=== PATIENT | female | born 1960 ===

== ENCOUNTER 2019-08-29 15:55 | Emergency (ER) | payer BC, SELFPAY ==
[2019-08-29 16:06] VITALS: BP 180/81; PULSE 72; RESP 18; TEMP 36.9; O2SAT 96; BMI 29.6
--- NOTE | 2019-08-29 16:10 | DI.RAD.S_ITS ---
PROCEDURE: XR LUMBAR SPINE 2-3V INDICATIONS: pain TECHNIQUE: 3 views of the lumbar spine were acquired. COMPARISON: None. FINDINGS: Bones: No fracture or focal osseous destruction. Severe narrowing of the L4-L5 disc space. Moderate L5-S1 disc space narrowing. Multilevel degenerative endplate sclerosis and spurring. Diffuse facet arthropathy. Sacroiliac joints grossly unremarkable. Soft tissues: Overlying bowel gas pattern is normal. No suspicious soft tissue calcifications. IMPRESSION: Multilevel lumbar spondylosis and facet disease, most pronounced at L4-L5 and L5-S1. Dictated by: Nazario Bazzi M.D. on 08/29/2019 at 16:40 Approved by: Nazario Bazzi M.D. on 08/29/2019 at 16:42
[2019-08-29] MEDS: CYCLOBENZAPRINE 10 MG TABLET PO (16:21)
[2019-08-29] MEDS: LIDOCAINE PATCH 1 EACH ADH..PATCH TOP (16:21)
--- NOTE | 2019-08-29 16:21 | ED_ITS ---
HPI - Back Pain/Injury <KAYLIN Kennedy - Last Filed: 08/29/19 18:06> General Chief Complaint: Back Pain/Injury Stated Complaint: lower back pain x2 wks Time Seen by Provider: 08/29/19 16:03 Source: patient and family Mode of arrival: Ambulatory Limitations: no limitations History of Present Illness HPI Narrative: The patient is a 58-year-old female current everyday smoker with history of hypertension who presents with a chief complaint of lower back pain. 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 She states it got worse yesterday while getting out of a car. She initially states she has only taken Tylenol at but then states that she took Flexeril this morning. She denies any incontinence of bowel incontinence of bladder saddle anesthesia. She states the pain is not radiating anywhere. She denies any numbness or tingling she has not followed up with primary care provider since the injury. Related Data Previous Rx's Medication Instructions Recorded cyclobenzaprine 10 mg PO TID PRN #14 tab 08/29/19 hydrocodone-acetaminophen [[place]hal[place]] 1 tab PO Q4-6H PRN #7 tab 08/29/19 lidocaine 1 patch TOP DAILY #15 each 08/29/19 Review of Systems <KAYLIN Kennedy - Last Filed: 08/29/19 18:06> Review of Systems Narrative: GENERAL: Denies chills, fatigue, malaise, fever, sweats. HEENT: Denies sinus pain, ear pain, sore throat, difficulty swallowing, dizzines s. RESPIRATORY: Denies dyspnea, cough, wheezing, hemoptysis, sputum. CARDIOVASCULAR: Denies chest pain, palpitations, orthopnea, edema, GASTROINTESTINAL: Denies nausea, vomiting, abdominal pain, diarrhea, constipation, melena. : Denies dysuria, frequency, incontinence, hematuria, urinary retention. MUSCULOSKELETAL: See HPI SKIN: Denies rash, skin lesions, or other NEUROLOGIC: Denies weakness, headache, numbness, change in speech, confusion, seizures, incoordination. PSYCHIATRIC: No concerning psychosocial issues. 12 point review of systems is negative except for those stated above Patient History <KAYLIN Kennedy - Last Filed: 08/29/19 18:06> Social History Smoking Status: Current every day smoker Smoking Status: Current every day smoker alcohol intake frequency: holidays/special occasions only Substance Use Type: marijuana Exam <KAYLIN Kennedy - Last Filed: 08/29/19 18:06> Narrative Exam Narrative: GENERAL: This is a well-nourished, well-developed patient, in mild distress. HEAD: Atraumatic. Normocephalic. No temporal or scalp tenderness. EYES: Pupils equal round and reactive. Extraocular motions intact. No scleral icterus. No injection or drainage. ENT: Nose without bleeding, purulent drainage or septal hematoma. Throat without erythema, tonsillar hypertrophy or exudate. Uvula midline. Airway patent. NECK: Trachea midline. No JVD or lymphadenopathy. Supple, nontender, no meningeal signs. CARDIOVASCULAR: Regular rate and rhythm RESPIRATORY: Coarse to auscultation. Breath sounds equal bilaterally. No wheezes, rales, or rhonchi. No cough. No increased respiratory effort. No accessory muscle use. GASTROINTESTINAL: Abdomen soft, non-tender, nondistended. No hepato- splenomegaly, or palpable masses. No guarding. EXTREMITIES: No clubbing, cyanosis, or edema. No joint tenderness, effusion, or edema noted. BACK: Cervical and thoracic spine are without deformity or crepitance. Tenderness to lumbar spine palpation and bilateral paraspinal muscle palpation. NEURO: AOx3. Strength is equal upper and lower extremities bilaterally. Bilateral patellar reflexes intact. Stable gait. SKIN: No rash or erythema on visible skin Initial Vital Signs Initial Vital Signs: Vital Signs Temperature 98.5 F 08/29/19 16:06 Pulse Rate 72 08/29/19 16:06 Respiratory Rate 18 08/29/19 16:06 Blood Pressure 180/81 H 08/29/19 16:06 Pulse Oximetry 96 08/29/19 16:06 <Forrest Quiroga DO - Last Filed: 08/29/19 18:35> Initial Vital Signs Initial Vital Signs: Vital Signs Temperature 98.5 F 08/29/19 16:06 Pulse Rate 72 08/29/19 16:06 Respiratory Rate 18 08/29/19 16:06 Blood Pressure 180/81 H 08/29/19 16:06 Pulse Oximetry 96 08/29/19 16:06 Course <KAYLIN Kennedy - Last Filed: 08/29/19 18:06> Orders Ordered: ED Orders 08/29/19 16:10 XR lumbar spine 2-3V Stat Discontinued Medications Hydrocodone Bitart/Acetaminophen ([place] 5/325) 1 tab PO NOW ONE Stop: 08/29/19 16:59 Last Admin: 08/29/19 17:23 Dose: 1 tab Documented by: NURIA Cyclobenzaprine HCl (Flexeril) 10 mg PO NOW ONE Stop: 08/29/19 16:11 Last Admin: 08/29/19 16:21 Dose: 10 mg Documented by: OTTO Lidocaine (Lidoderm) 1 each TOP NOW ONE Stop: 08/29/19 16:11 Last Admin: 08/29/19 16:21 Dose: 1 each Documented by: OTTO Vital Signs Vital signs: Vital Signs - 8 hr 08/29/19 16:06 08/29/19 18:31 Temperature 98.5 F Pulse Rate 72 57 L Respiratory Rate 18 18 Blood Pressure 180/81 H 148/75 H Pulse Oximetry 96 100 <Forrest Quiroga DO - Last Filed: 08/29/19 18:35> Orders Ordered: ED Orders 08/29/19 16:10 XR lumbar spine 2-3V Stat Discontinued Medications Hydrocodone Bitart/Acetaminophen ([place]hal[place] 5/325) 1 tab PO NOW ONE Stop: 08/29/19 16:59 Last Admin: 08/29/19 17:23 Dose: 1 tab Documented by: NURIA Cyclobenzaprine HCl (Flexeril) 10 mg PO NOW ONE Stop: 08/29/19 16:11 Last Admin: 08/29/19 16:21 Dose: 10 mg Documented by: OTTO Lidocaine (Lidoderm) 1 each TOP NOW ONE Stop: 08/29/19 16:11 Last Admin: 08/29/19 16:21 Dose: 1 each Documented by: OTTO Vital Signs Vital signs: Vital Signs - 8 hr 08/29/19 16:06 08/29/19 18:31 Temperature 98.5 F Pulse Rate 72 57 L Respiratory Rate 18 18 Blood Pressure 180/81 H 148/75 H Pulse Oximetry 96 100 MDM - Back Pain/Injury <KAYLIN Kennedy - Last Filed: 08/29/19 18:06> Lab Data Labs: Urine Dip Bedside Urine Glucose Negative Bedside Urine Bilirubin - Negative Bedside Urine Ketone - Negative Urine Specific [place] 1.015 Bedside Urine Occult Blood - Negative Bedside Urine pH 7.0 Bedside Urine Protein - Negative Bedside Urine Urobilinogen - Negative Bedside Urine Nitrite - Negative Bedside Urine Leukocytes - Negative Esterase Imaging Data lumbar xray : Radiologist's Impression: [address] [address] XRay Report Signed Patient: Camille Weaver#: [id number] : 1Acct:[id number] Age/Sex: 58 / FDate of Service: 08/29/19 Loc: ED Accession Number: [id number] Procedure: XR lumbar spine 2-3V Ordering Provider: Radha Reardon PROCEDURE: XR LUMBAR SPINE 2-3V INDICATIONS: pain TECHNIQUE: 3 views of the lumbar spine were acquired. COMPARISON: None. FINDINGS: Bones: No fracture or focal osseous destruction. Severe narrowing of the L4-L5 disc space. Moderate L5-S1 disc space narrowing. Multilevel degenerative endplate sclerosis and spurring. Diffuse facet arthropathy. Sacroiliac joints grossly unremarkable. Soft tissues: Overlying bowel gas pattern is normal. No suspicious soft tissue calcifications. IMPRESSION: Multilevel lumbar spondylosis and facet disease, most pronounced at L4-L5 and L5-S1. Dictated by: Nazario Bazzi M.D. on 08/29/2019 at 16:40 Approved by: Nazario Bazzi M.D. on 08/29/2019 at 16:42 MDM Narrative Medical decision making narrative: The patient is a 58-year-old female who presents with a chief complaint of 2 weeks of lower back pain. She has no red flag symptoms of incontinence of bowel, incontinence of bladder saddle anesthesia, which helps rule cauda. She states that she understands that these are return precautions. Imaging was obtained, and shows no acute fractures. She is neurovascularly intact. She feels much improved after the above-stated therapies. I discussed at length the importance of following up with primary care provider coming back to the emergency department for any acute concerns. Patient has no questions or concerns upon discharge and states understanding of return precautions as well as follow-up care. Ambulated steadily out the department with her . <Forrest Quiroga DO - Last Filed: 08/29/19 18:35> Lab Data Labs: Urine Dip Bedside Urine Glucose Negative Bedside Urine Bilirubin - Negative Bedside Urine Ketone - Negative Urine Specific [place] 1.015 Bedside Urine Occult Blood - Negative Bedside Urine pH 7.0 Bedside Urine Protein - Negative Bedside Urine Urobilinogen - Negative Bedside Urine Nitrite - Negative Bedside Urine Leukocytes - Negative Esterase Discharge Plan Departure Patient Disposition: Home Clinical Impression: Acute low back pain Qualifiers: Back pain laterality: bilateral Sciatica presence: without sciatica Qualified Code(s): M54.5 - Low back pain Clinical Impression: (Ruled Out): Acute low back pain due to trauma Discharge Date/Time: 08/29/19 18:15 Instructions: DI for Back Pain With Sciatica, DI for Back Spasm, DI for Back Strain or Sprain Activity Restrictions/Additional Instructions: Thank you for trusting us with your care today. Please follow-up with primary care provider in the next few days. I have sent 3 pain medications to [facility] in [place] You have been prescribed narcotic medications. While on these medications you cannot drive or operate heavy machinery. Additionally you cannot sign legal documents or perform any duties such as this. 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 Please understand that we cannot provide further refills of narcotics or controlled substances through the ED and your pain management will need to be through your Primary Care Provider Please be aware that the cyclobenzaprine can also be sedating Please come back to the emergency department for any acute concerns such as incontinence of bowel, incontinence of bladder or numbness in her groin Prescriptions: New lidocaine 5 % adhesive patch,medicated 1 patch TOP DAILY Qty: 15 RF: 0 hydrocodone-acetaminophen [[place]hal[place]] 5-325 mg tablet 1 tab PO Q4-6H PRN (Reason: pain) Qty: 7 RF: 0 cyclobenzaprine 10 mg tablet 10 mg PO TID PRN (Reason: muscle spasm) Qty: 14 RF: 0 <Forrest Quiroga, DO - Last Filed: 08/29/19 18:35> Sign Out Provider Sign Out Attestation: Dr Quiroga Co-Sign Statement: I was available for consultation during this patient's emergency department visit. This chart is signed by myself for administrative purposes only. I did not have direct cont act with this patient during this visit. They were seen independently by the APC.
[2019-08-29] MEDS: HYDROCODONE/ACET 5/325 TABLET 1 TAB PO (17:23)
[2019-08-29 18:31] VITALS: BP 148/75; PULSE 57; RESP 18; O2SAT 100
== END 2019-08-29 18:15 | disposition home or self-care (01) ==
PROVIDERS: Emergency Provider Nurse Practitioner Family
DX: M54.5 Low back pain (principal); I10 Essential (primary) hypertension
CPT/HCPCS: 72100; 81003; 99283

== ENCOUNTER 2021-02-19 15:06 | Emergency (ER) | payer BC, SELFPAY ==
[2021-02-19 15:44] VITALS: BP 147/81; PULSE 71; RESP 16; TEMP 36.4; O2SAT 98; BMI 27.6
--- NOTE | 2021-02-19 18:19 | DI.RAD.S_ITS ---
PROCEDURE: XR SHOULDER LT MIN 2V INDICATIONS: Shoulder pain TECHNIQUE: 3 views of the shoulder were acquired. COMPARISON: None. FINDINGS: Bones: No fractures or dislocations. No suspicious bony lesions. Visualized ribs appear intact. Mild degenerative changes of the left acromioclavicular joint. Soft tissues: No suspicious soft tissue calcifications. IMPRESSION: No acute abnormality of the left shoulder. Dictated by: Neeraj Ulloa M.D. on 02/19/2021 at 18:58 Approved by: Neeraj Ulloa M.D. on 02/19/2021 at 18:59
[2021-02-19] MEDS: MORPHINE 4 MG/ML INJ IM (18:31)
[2021-02-19 19:47] VITALS: BP 161/93; PULSE 89; RESP 18; O2SAT 99
--- NOTE | 2021-02-22 20:10 | ED.UPPEXIN ---
HPI - Extremity Injury (Upper) <Tato Curry PA-C - Last Filed: 02/22/21 20:24> General Chief Complaint: Extremity Injury, Upper Stated Complaint: INJURED SHOULDER-IN PAIN Time Seen by Provider: 02/19/21 17:38 Source: patient Mode of arrival: Ambulatory History of Present Illness HPI narrative: 60-year-old female with left-sided rotator cuff tear presents to the ED with left shoulder pain for 6 days. patient states that she has been having left-sided shoulder pain for a month, had an MRI on 02/13/2021 which showed a left rotator cuff injury. Since the MRI patient has experienced worsening pain in the left shoulder, called her PCP earlier today, who directed her to the ED. patient has a appointment with her PCP for 02/24/2021. Patient denies numbness, weakness, tingling. Patient denies fever, chills, chest pain, shortness of breath, nausea, vomiting, abdominal pain, cough, dysuria, syncope, dizziness, lightheadedness. Patient has taken [id number] pain medications without relief. Related Data Home Medications Medication Instructions Recorded Confirmed atorvastatin 40 mg tablet 40 mg PO BEDTIME 02/19/21 02/19/21 carvedilol 3.125 mg tablet 3.125 mg PO BID 02/19/21 02/19/21 clopidogrel 75 mg tablet 75 mg PO DAILY 02/19/21 02/19/21 levothyroxine 25 mcg tablet 25 mcg PO DAILY 02/19/21 02/19/21 (Euthyrox) prazosin 2 mg capsule 2 mg PO BEDTIME 02/19/21 02/19/21 pregabalin 25 mg capsule 25 mg PO TID 02/19/21 02/19/21 Allergies Allergy/AdvReac Type Severity Reaction Status Date / Time aspirin AdvReac Abdominal Verified 02/19/21 15:49 Pain codeine AdvReac ITCHING Verified 02/19/21 15:49 Review of Systems <Tato Curry PA-C - Last Filed: 02/22/21 20:24> Constitutional Constitutional: Denies chills, Denies fatigue, Denies fever(s), Denies frequent falls, Denies lethargy and Denies weakness Eyes Eyes: Denies change in vision, Denies eye discharge, Denies irritation and Denies loss of vision ENT Ears, Nose, Mouth, and Throat: Denies change in voice, Denies dizziness, Denies neck pain, Denies sore throat and Denies throat swelling Cardiovascular Cardiovascular: Denies chest pain, Denies irregular heart rhythm, Denies lightheadedness, Denies palpitations, Denies dyspnea, Denies dyspnea on exertion and Denies orthopnea Respiratory Respiratory: Denies cough, Denies dyspnea, Denies dyspnea on exertion and Denies wheezing Gastrointestinal Gastrointestinal: Denies abdominal pain, Denies change in bowel habits, Denies diarrhea, Denies nausea and Denies vomiting Musculoskeletal Musculoskeletal: Denies neck pain and Denies numbness Comments: left shoulder pain, range of motion limited by pain. Integumentary/Breasts Skin/Breast: Denies pruritus, Denies erythema, Denies rash and Denies wounds Neurologic Neurologic: Denies behavioral changes, Denies confusion, Denies dizziness, Denies frequent falls, Denies loss of vision, Denies numbness and Denies weakness Psychiatric Psychiatric: Denies anxiety, Denies behavioral changes, Denies confusion, Denies depression, Denies homicidal ideation and Denies suicidal ideation Endocrine Endocrine: Denies fatigue, Denies flushing and Denies palpitations Hematologic/Lymphatic Hematologic/Lymphatic: Denies easy bruising Allergic/Immunologic Allergic/Immunologic: Denies urticaria, Denies throat swelling and Denies wheezing Patient History <Tato Curry PA-C - Last Filed: 02/22/21 20:24> Social History Smoking Status: Current every day smoker Smoking Status: Current every day smoker alcohol intake frequency: holidays/special occasions only Substance Use Type: marijuana Exam <Tato Curry PA-C - Last Filed: 02/22/21 20:24> Initial Vital Signs Initial Vital Signs: Vital Signs Temperature 97.5 F L 02/19/21 15:44 Pulse Rate 71 02/19/21 15:44 Respiratory Rate 16 02/19/21 15:44 Blood Pressure 147/81 H 02/19/21 15:44 Pulse Oximetry 98 02/19/21 15:44 Const General: cooperative HENMT Head: normocephalic and atraumatic Ears: external ears normal and TM's normal bilaterally Nose: external nose normal and No nasal discharge Face and sinus: sinuses nontender, face symmetric, no sinus tenderness and No dry mucous membranes Mouth: oral mucosae normal and moist mucous membranes Teeth and gingiva: dentition normal Throat: tonsils normal and uvula midline Eyes General: appearance normal, both eyes and all related structures Eyelids: eyelids normal Conjunctivae: conjunctivae normal Sclera: sclerae normal Pupils: PERRL EOM: EOM intact bilaterally Neck Neck: normal visual inspection, trachea midline, No lymphadenopathy, No midline deformity and No JVD Lymphatic: No lymphedema Chest Chest: normal inspection of the chest Resp Effort & Inspection: normal respiratory effort, able to speak in complete sentences, no respiratory distress and no use of accessory muscles Auscultation: clear to auscultation bilaterally, no rales, no rhonchi and no wheezes Cardio Rate: regular rate Rhythm: regular rhythm Heart Sounds: no click, no gallops, no murmurs and no rubs Pulses: normal peripheral pulses GI Inspection: non-distended Palpation: soft, no hepatosplenomegaly, No guarding, No pulsatile mass and No tender Auscultation: normal bowel sounds Back/Spine/Pelvis Back: No CVA tenderness Cervical Spine: cervical ROM normal and No pain with cervical ROM Thoracic/Lumbar Spine: thoracic and lumbar spine normal to inspection Skin General: no rashes or lesions noted, No jaundice and No petechiae Neuro General: patient alert, patient oriented x3, gait normal and no focal motor deficits Speech: speech normal Extrem General: full ROM, no clubbing, cyanosis or edema, no pedal edema and no calf tenderness Other: Neurovascularly intact, strength and sensation intact, cap refill less than 2 seconds. Range of motion of left shoulder, arm limited by pain. Patient able to reach right shoulder with left hand. No bony tenderness to palpation Psych Appearance: well kempt Mental Status: mental status grossly normal Attitude: cooperative Thought Content: normal and suicidality Judgment: judgment good <Forrest Quiroga DO - Last Filed: 02/25/21 07:05> Initial Vital Signs Initial Vital Signs: Vital Signs Temperature 97.5 F L 02/19/21 15:44 Pulse Rate 71 02/19/21 15:44 Respiratory Rate 16 02/19/21 15:44 Blood Pressure 147/81 H 02/19/21 15:44 Pulse Oximetry 98 02/19/21 15:44 Course <Tato Curry PA-C - Last Filed: 02/22/21 20:24> Course Course Narrative: Patient's symptoms improved with morphine in the ED. negative x-rays. Will discharge home with prescription for tramadol. PCP follow-up, ED return precautions. Orders Ordered: Discontinued Medications Morphine Sulfate (Morphine 4 Mg/Ml Inj) 4 mg IM NOW ONE Stop: 02/19/21 18:20 Last Admin: 02/19/21 18:31 Dose: 4 mg Documented by: INDIRA <Forrest Quiroga DO - Last Filed: 02/25/21 07:05> Orders Ordered: Discontinued Medications Morphine Sulfate (Morphine 4 Mg/Ml Inj) 4 mg IM NOW ONE Stop: 02/19/21 18:20 Last Admin: 02/19/21 18:31 Dose: 4 mg Documented by: INDIRA [facility] - Extremity Injury (Upper) <Tato Curry PA-C - Last Filed: 02/22/21 20:24> Medical Records Attestation: I reviewed the patient's medical records. Imaging Data Shoulder x-ray: Radiologist's Impression: PROCEDURE:? XR SHOULDER LT MIN 2V ? INDICATIONS:? Shoulder pain ? TECHNIQUE:? 3 views of the shoulder were acquired.? ? COMPARISON:? None. ? FINDINGS:? ? Bones:? No fractures or dislocations.? No suspicious bony lesions.? Visualized ribs appear intact.? Mild degenerative changes of the left acromioclavicular joint. ? Soft tissues:? No suspicious soft tissue calcifications.? ? IMPRESSION:? No acute abnormality of the left shoulder. ? ? Dictated by: Neeraj Ulloa M.D. on 02/19/2021 at 18:58 ? ? Approved by: Neeraj Ulloa M.D. on 02/19/2021 at 18:59 ? [facility] Narrative Medical decision making narrative: 60-year-old female with left-sided rotator cuff tear presents to the ED with left shoulder pain for 6 days. concern for fractures /dislocation versus chronic rotator cuff injury pain. Will order x-rays. Physical exam reassuring, neurovascularly intact. Will reassess. Likely discharge home with PCP follow-up. Discharge Plan Departure Patient Disposition: Home Clinical Impression: Acute shoulder pain Qualifiers: Laterality: left Qualified Code(s): M25.512 - Pain in left shoulder Instructions: DI for Shoulder Pain Activity Restrictions/Additional Instructions: Your x-rays today in the ED do not show fractures or dislocations. Your shoulder pain is likely related to the rotator cuff tear detected on your MRI from 02/13/2021. Follow-up with your PCP as soon as possible. You can take Tylenol or tramadol for pain control. Return to the ED if you experience numbness, tingling, weakness. Prescriptions: No Action atorvastatin 40 mg tablet 40 mg PO BEDTIME RF: 0 clopidogrel 75 mg tablet 75 mg PO DAILY RF: 0 carvedilol 3.125 mg tablet 3.125 mg PO BID RF: 0 levothyroxine [Euthyrox] 25 mcg tablet 25 mcg PO DAILY RF: 0 prazosin 2 mg capsule 2 mg PO BEDTIME RF: 0 pregabalin 25 mg capsule 25 mg PO TID RF: 0 <Forrest Quiroga, DO - Last Filed: 02/25/21 07:05> Cosign ED Attending Cosignature Attestation: Dr Quiroga Co-Sign Statement: I was available for consultation during this patient's emergency department visit. This chart is signed by myself for administrative purposes only. I did not have direct contact with this patient during this visit. They were seen independently by the APC.
== END 2021-02-19 19:48 | disposition home or self-care (01) ==
PROVIDERS: Emergency Provider Student in an Organized Health Care Education/Training Program
DX: M25.512 Pain in left shoulder (principal)
CPT/HCPCS: 73030; 96372; 99283; J2270

== ENCOUNTER 2023-01-29 10:52 | Emergency (ER) | payer SELFPAY ==
[2023-01-29] VITALS (10 sets, daily range): BP systolic 158–217; BP diastolic 71–103; PULSE 59–74; RESP 14–24; TEMP 36.7; O2SAT 96–98; BMI 27.4
--- NOTE | 2023-01-29 11:30 | DI.RAD.S_ITS ---
PROCEDURE: XR CHEST 1V INDICATIONS: chest pain TECHNIQUE: One view of the chest was acquired. COMPARISON: None. FINDINGS: Surgical changes and devices: None. Lungs and pleura: Lungs are clear. No pleural effusions or pneumothorax. Mediastinum: Mediastinal contours appear normal. Heart size is normal. Bones and chest wall: No suspicious bony lesions. Overlying soft tissues appear unremarkable. IMPRESSION: No acute cardiopulmonary findings Approved by: Curtis Joy M.D. on 01/29/2023 at 12:01
--- NOTE | 2023-01-29 11:33 | DI.CT.S_ITS ---
PROCEDURE: CT HEAD/BRAIN WO CON INDICATIONS: Trauma, pain TECHNIQUE: Noncontrast 4.5 mm thick angled axial sections acquired from the foramen magnum to the vertex, with coronal and sagittal reformats. For radiation dose reduction, the following was used: automated exposure control, adjustment of mA and/or kV according to patient size. COMPARISON: None. FINDINGS: Image quality: Excellent. CSF spaces: Basal cisterns are patent. No extra-axial fluid collections. Ventricles are normal in size and shape. Brain: No midline shift. No intracranial masses or hemorrhage. Wright-white matter interface is normal. Skull and face: Calvarium and visualized facial bones are intact, without suspicious lesions. Sinuses: Visualized sinuses and mastoids are clear. IMPRESSION: Unremarkable CT brain. No intracranial hemorrhage or mass effect Approved by: Curtis Joy M.D. on 01/29/2023 at 11:28
--- NOTE | 2023-01-29 11:33 | DI.CT.S_ITS ---
PROCEDURE: CT CERVICAL SPINE WO CON INDICATIONS: Trauma, pain TECHNIQUE: Noncontrast 3 mm thick sections acquired from the skull base to the T4 level. Sagittal and coronal reformats were then constructed. For radiation dose reduction, the following was used: automated exposure control, adjustment of mA and/or kV according to patient size. COMPARISON: None. FINDINGS: Image quality: Excellent. Bones: No fractures or dislocations. Visualized superior ribs are intact. Disc space narrowing and uncovertebral arthropathy noted in the mid cervical spine with moderate central stenosis C5-6 Soft tissues: Prevertebral soft tissues are normal in thickness. No paravertebral hematomas. No apical pneumothoraces. IMPRESSION: No fracture or traumatic malalignment Multilevel degenerative disc disease and arthropathy results in varying degrees of central and foraminal stenosis including moderate central stenosis C5-6 Approved by: Curtis Joy M.D. on 01/29/2023 at 11:35
--- NOTE | 2023-01-29 11:36 | DI.RAD.S_ITS ---
PROCEDURE: XR KNEE RT 3V INDICATIONS: Trauma, pain TECHNIQUE: 3 views of the knee were acquired. COMPARISON: None. FINDINGS: Bones: No fractures or dislocations. No suspicious bony lesions. Moderate lateral compartment joint space narrowing. Small marginal osteophytes Soft tissues: Small joint effusion. No suspicious soft tissue calcifications. IMPRESSION: Small joint effusion without fracture Approved by: Curtis Joy M.D. on 01/29/2023 at 12:02
[2023-01-29 12:06] LABS: Add Manual Diff / Slide Review NO; Basophils Absolute Auto 100 /uL (0-100); Basophils Percent Auto 1.5 % (0-2); Eosinophils Absolute Auto 300 /uL (0-450); Eosinophils Percent Auto 3.6 % (2-4); Hematocrit 40.8 % (36-46); Lymphocytes Absolute Auto 1400 /uL (1100-4500); Lymphocytes Percent Auto 20.3 % (25-40); Mean Corpuscular HGB Conc 34.3 % (30-36); Mean Corpuscular Hemoglobin 28.9 PG (26-34); Mean Corpuscular Volume 84.1 fL (80-100); Monocytes Absolute Auto 600 /uL (0-900); Monocytes Percent Auto 8.8 % (3-14); Neutrophils Absolute Auto 4600 /uL (1500-7000); Neutrophils Percent Auto 65.8 % (50-75); Platelet Count 228 X10^3/uL (150-400); Red Blood Cell Count 4.85 X10^6/uL (4.0-5.2); Red Cell Distribution Width 13.7 % (11.6-14.8)
[2023-01-29 12:16] LABS: INR 1.1 (0.9-1.3); Prothrombin Time 13.1 SECONDS (10.1-12.7)
[2023-01-29 12:18] LABS: PTT Partial Thromboplastin Tim 30 SECONDS (26-36)
[2023-01-29 12:20] LABS: Alanine Aminotransferase 15 IU/L (<35); Albumin Globulin Ratio 1.3 (1.0-2.8); Alkaline Phosphatase 76 U/L (38-126); Aspartate Aminotransferase 23 IU/L (14-36); BUN Creatinine Ratio 12.2 (6-22); Bilirubin Total 0.6 mg/dL (0.2-1.3); Blood Urea Nitrogen 9 mg/dL (7-17); Calcium 8.9 mg/dL (8.4-10.2); Carbon Dioxide 25 mmol/L (22-32); Chloride 108 mmol/L (98-107); Creatine Kinase 62 U/L (30-135); Estimated Glomerular Filt Rate > 60 mL/min (>60); Glucose 99 mg/dL (80-110); HEMOLYSIS < 15 (0-50); Lipase 53 U/L (23-300); Potassium 3.8 mmol/L (3.4-5.1); Sodium 139 mmol/L (137-145)
[2023-01-29 12:31] LABS: Troponin I < 0.012 ng/mL (0.01-0.034)
--- NOTE | 2023-01-29 12:33 | ED_ITS ---
HPI - Fall General Chief Complaint: Fall Stated Complaint: Fall/Hit Head/Blurred Vision/Blood Thinners Time Seen by Provider: 01/29/23 12:06 Source: patient and family Mode of arrival: Ambulatory History of Present Illness HPI Narrative: Patient 62-year-old female history of coronary artery disease on aspirin hypertension hyperlipidemia hypothyroid presenting today after a ground level fall last night. She reports that there is construction she tripped fell forward and hit her head last night sure it. She had a very brief loss of co nsciousness. No nausea vomiting. She was having some blurry vision. She is really complaining of some right knee pain but she is able to ambulate and bear weight. She is noted to be very hypertensive. No chest pain shortness of breath or other symptoms. Related Data Home Medications Medication Instructions Recorded Confirmed atorvastatin 40 mg tablet 40 mg PO BEDTIME 02/19/21 02/19/21 carvedilol 3.125 mg tablet 3.125 mg PO BID 02/19/21 02/19/21 clopidogrel 75 mg tablet 75 mg PO DAILY 02/19/21 02/19/21 levothyroxine 25 mcg tablet 25 mcg PO DAILY 02/19/21 02/19/21 (Euthyrox) prazosin 2 mg capsule 2 mg PO BEDTIME 02/19/21 02/19/21 pregabalin 25 mg capsule 25 mg PO TID 02/19/21 02/19/21 Previous Rx's Medication Instructions Recorded hydrocodone 5 mg-acetaminophen 325 1 tab PO Q6H PRN pain #10 tabs 01/29/23 mg tablet Allergies Allergy/AdvReac Type Severity Reaction Status Date / Time aspirin AdvReac Abdominal Verified 02/19/21 15:49 Pain codeine AdvReac ITCHING Verified 02/19/21 15:49 Review of Systems Review of Systems ROS Unobtainable: All systems reviewed & are unremarkable except as noted in HPI and below Patient History Social History Smoking Status: Current every day smoker Smoking Status: Current every day smoker alcohol intake frequency: holidays/special occasions only Substance Use Type: marijuana Exam Initial Vital Signs Initial Vital Signs: Vital Signs Temperature 98.1 F 01/29/23 11:04 Pulse Rate 71 01/29/23 11:04 Pulse Oximetry 98 01/29/23 11:04 GENERAL: Alert well-appearing 62-year-old female and in [no acute] distress. HEENT: Head atraumatic,EOMI, pupils reactive, face symmetric, [moist] mucous membranes [EARS:] [Tympanic membranes visualized, no erythema or bulging, no hemotympanum] [PHARYNX:] [No erythema, no tonsillar exudate, no cervical lymphadenopathy] CARDIOVASCULAR: Regular rate and rhythm without murmurs, rubs or gallops. RESPIRATORY: Breath sounds equal bilaterally, no wheezes rales or rhonchi. ABDOMEN: Soft, nontender. Normoactive bowel sounds all 4 quadrants. No guarding or rebound. EXTREMITIES: Normal range of motion, no clubbing or edema. Neurovascularly intact Right leg anterior proximal tibia contusion distal pedal pulse intact able to flex and extend knee knee is stable. NEUROLOGICAL: Alert and oriented x4. SKIN: Warm, dry, no laceration, no petechiae, no rashes or lesions. Course Orders Ordered: ED Orders 01/29/23 11:30 XR chest 1V Stat 01/29/23 11:33 CT cervical spine wo con Stat CT head/brain wo con Stat 01/29/23 11:36 XR knee RT 3V Stat 01/29/23 11:39 EKG-12 Lead Stat 01/29/23 11:44 Complete Blood Count AUTO DIFF Stat Comprehensive Metabolic Panel Stat Lipase Stat Magnesium Stat PTT Partial Thromboplastin [place] Stat Prothrombin Time INR Stat Troponin & CK Cardiac Panel Stat 01/29/23 12:25 Urine Culture Stat Urine Microscopic Stat Vital Signs Vital signs: Vital Signs - 8 hr 01/29/23 11:17 01/29/23 11:15 01/29/23 11:15 Temperature 98.1 F Pulse Rate 74 64 Respiratory Rate 18 14 Blood Pressure 195/88 H 190/91 H Pulse Oximetry 97 98 Oxygen Delivery Method Room Air 01/29/23 13:19 01/29/23 11:30 01/29/23 11:31 Temperature Pulse Rate 74 59 L 60 Respiratory Rate 18 24 23 Blood Pressure Pulse Oximetry 98 97 96 Oxygen Delivery Method Room Air 01/29/23 11:31 01/29/23 11:48 01/29/23 11:48 Temperature Pulse Rate 61 Respiratory Rate 24 Blood Pressure 158/71 H 169/78 H Pulse Oximetry 96 Oxygen Delivery Method 01/29/23 12:12 Temperature Pulse Rate 72 Respiratory Rate 24 Blood Pressure Pulse Oximetry Oxygen Delivery Method MDM - Fall Lab Data 01/29/23 11:44 01/29/23 11:44 Labs: Lab Results 01/29/23 01/29/23 01/29/23 Range/Units 11:44 11:44 11:44 WBC 7.0 (4.5-11.0) X10^3/uL RBC 4.85 (4.0-5.2) X10^6/uL Hgb 14.0 (12.0-16.0) g/dL Hct 40.8 (36-46) % MCV 84.1 (80-100) fL MCH 28.9 (26-34) PG MCHC 34.3 (30-36) % RDW 13.7 (11.6-14.8) % Plt Count 228 (150-400) X10^3/uL Neut % (Auto) 65.8 (50-75) % Lymph % (Auto) 20.3 L (25-40) % [place] % (Auto) 8.8 (3-14) % Eos % (Auto) 3.6 (2-4) % Baso % (Auto) 1.5 (0-2) % Neut # (Auto) 4600 (9039-9230) /uL Lymph # (Auto) 1400 (6411-9981) /uL [place] # (Auto) 600 (0-900) /uL Eos # (Auto) 300 (0-450) /uL Baso # (Auto) 100 (0-100) /uL PT 13.1 H (10.1-12.7) SECONDS INR 1.1 (0.9-1.3) APTT 30 (26-36) SECONDS Sodium 139 (137-145) mmol/L Potassium 3.8 (3.4-5.1) mmol/L Chloride 108 H (98-107) mmol/L Carbon Dioxide 25 (22-32) mmol/L BUN 9 (7-17) mg/dL Creatinine 0.74 (0.52-1.04) mg/dL Estimated GFR > 60 (>60) mL/min BUN/Creatinine Ratio 12.2 (6-22) Glucose 99 (80-110) mg/dL Calcium 8.9 (8.4-10.2) mg/dL Magnesium 2.0 (1.6-2.3) mg/dL Total Bilirubin 0.6 (0.2-1.3) mg/dL AST 23 (14-36) IU/L ALT 15 (<35) IU/L Alkaline Phosphatase 76 (38-126) U/L Total Creatine Kinase 62 (30-135) U/L Troponin I < 0.012 (0.01-0.034) ng/mL Total Protein 7.0 (6.3-8.2) g/dL Albumin 4.0 (3.5-5.0) g/dL Globulin 3.0 (1.7-4.1) g/dL Albumin/Globulin Ratio 1.3 (1.0-2.8) Lipase 53 (23-300) U/L Urine RBC (0-5/HPF) Urine WBC (0-5/HPF) Ur Squamous Epith Cells (0-5/HPF) Urine Bacteria (None) Ur Culture Indicated? 01/29/23 Range/Units 12:25 WBC (4.5-11.0) X10^3/uL RBC (4.0-5.2) X10^6/uL Hgb (12.0-16.0) g/dL Hct (36-46) % MCV (80-100) fL MCH (26-34) PG MCHC (30-36) % RDW (11.6-14.8) % Plt Count (150-400) X10^3/uL Neut % (Auto) (50-75) % Lymph % (Auto) (25-40) % [place] % (Auto) (3-14) % Eos % (Auto) (2-4) % Baso % (Auto) (0-2) % Neut # (Auto) (3289-0495) /uL Lymph # (Auto) (9204-3224) /uL [place] # (Auto) (0-900) /uL Eos # (Auto) (0-450) /uL Baso # (Auto) (0-100) /uL PT (10.1-12.7) SECONDS INR (0.9-1.3) APTT (26-36) SECONDS Sodium (137-145) mmol/L Potassium (3.4-5.1) mmol/L Chloride (98-107) mmol/L Carbon Dioxide (22-32) mmol/L BUN (7-17) mg/dL Creatinine (0.52-1.04) mg/dL Estimated GFR (>60) mL/min BUN/Creatinine Ratio (6-22) Glucose (80-110) mg/dL Calcium (8.4-10.2) mg/dL Magnesium (1.6-2.3) mg/dL Total Bilirubin (0.2-1.3) mg/dL AST (14-36) IU/L ALT (<35) IU/L Alkaline Phosphatase (38-126) U/L Total Creatine Kinase (30-135) U/L Troponin I (0.01-0.034) ng/mL Total Protein (6.3-8.2) g/dL Albumin (3.5-5.0) g/dL Globulin (1.7-4.1) g/dL Albumin/Globulin Ratio (1.0-2.8) Lipase (23-300) U/L Urine RBC 0-1/hpf (0-5/HPF) Urine WBC 5-10/hpf H (0-5/HPF) Ur Squamous Epith Cells 1-5 /hpf (0-5/HPF) Urine Bacteria Moderate (10-30) H (None) Ur Culture Indicated? Specimen cultured Urine Dip Bedside Urine Glucose Negative Bedside Urine Bilirubin - Negative Bedside Urine Ketone - Negative Urine Specific [place] 1.010 Bedside Urine Occult Blood - Negative Bedside Urine pH 6 Bedside Urine Protein - Negative Bedside Urine Urobilinogen - Negative Bedside Urine Nitrite - Negative Bedside Urine Leukocytes - Negative Esterase Imaging Data Chest x-ray: Radiologist's Impression: PROCEDURE:? XR CHEST 1V ? INDICATIONS:? chest pain ? TECHNIQUE:? One view of the chest was acquired.? ? COMPARISON:? None. ? FINDINGS:? ? Surgical changes and devices:? None.? ? Lungs and pleura:? Lungs are clear.? No pleural effusions or pneumothorax.? ? Mediastinum:? Mediastinal contours appear normal.? Heart size is normal.? ? Bones and chest wall:? No suspicious bony lesions.? Overlying soft tissues appear unremarkable.? ? IMPRESSION:? No acute cardiopulmonary findings ? ? ? Approved by: Curtis Joy M.D. on 01/29/2023 at 12:0 CT - cervical spine: Radiologist's Impression: PROCEDURE:? CT CERVICAL SPINE WO CON ? INDICATIONS:? Trauma, pain ? TECHNIQUE:? Noncontrast 3 mm thick sections acquired from the skull base to the T4 level.? Sagittal and coronal reformats were then constructed.? For radiation dose reduction, the following was used:? automated exposure control, adjustment of mA and/or kV according to patient size.? ? COMPARISON:? None. ? FINDINGS:? Image quality:? Excellent.? ? Bones:? No fractures or dislocations.? Visualized superior ribs are intact.? Disc space narrowing and uncovertebral arthropathy noted in the mid cervical spine with moderate central stenosis C5-6 ? Soft tissues:? Prevertebral soft tissues are normal in thickness.? No paravertebral hematomas.? No apical pneumothoraces.? ? ? IMPRESSION:? ? No fracture or traumatic malalignment ? Multilevel degenerative disc disease and arthropathy results in varying degrees of central and foraminal stenosis including moderate central stenosis C5-6 ? Approved by: Curtis Joy M.D. on 01/29/2023 at 11:35? CT scan - head: Radiologist's Impression: PROCEDURE:? CT HEAD/BRAIN WO CON ? INDICATIONS:? Trauma, pain ? TECHNIQUE:? Noncontrast 4.5 mm thick angled axial sections acquired from the foramen magnum to the vertex, with coronal and sagittal reformats.? For radiation dose reduction, the following was used:? automated exposure control, adjustment of mA and/or kV according to patient size.? ? COMPARISON:? None. ? FINDINGS:? Image quality:? Excellent.? ? CSF spaces:? Basal cisterns are patent.? No extra-axial fluid collections.? Ventricles are normal in size and shape.? ? Brain:? No midline shift.? No intracranial masses or hemorrhage.? Wright-white matter interface is normal.? ? Skull and face:? Calvarium and visualized facial bones are intact, without suspicious lesions.? ? Sinuses:? Visualized sinuses and mastoids are clear.? ? IMPRESSION:? Unremarkable CT brain.? No intracranial hemorrhage or mass effect ? ? ? Approved by: Curtis Joy M.D. on 01/29/2023 at 11:28? Extremity x-ray #1: Radiologist's Impression: PROCEDURE:? XR KNEE RT 3V ? INDICATIONS:? Trauma, pain ? TECHNIQUE:? 3 views of the knee were acquired.? ? COMPARISON:? None. ? FINDINGS:? ? Bones:? No fractures or dislocations.? No suspicious bony lesions.? Moderate lateral compartment joint space narrowing.? Small marginal osteophytes ? Soft tissues:? Small joint effusion.? No suspicious soft tissue calcifications.? ? ? IMPRESSION:? ? Small joint effusion without fracture ? ? ? Approved by: Curtis Joy M.D. on 01/29/2023 at 12:0 ECG Data Interpretation: Sinus rhythm rate 62 OK or QRS 74 QTC knee changes T-wave inversions MDM Narrative Medical decision making narrative: Patient 60-year-old female who presents for a ground level fall. She has a c ontusion over her right leg fractures identified. It was initially thought she was on warfarin however there is no evidence she is on warfarin she takes aspirin. Head CT and C-spine are all negative. She initially was hypertensive however blood pressure has come down there is no evidence of end-organ damage. She was to his to help with she would also like pain control.. Discharge Plan Departure Patient Disposition: Home Clinical Impression: Contusion of knee, right Instructions: Contusion Activity Restrictions/Additional Instructions: *You have been diagnosed with contusion *What to do: At this time increase activity as tolerated elevate and ice. *Continue to take medications as directed [place] 1 tablet every 6 hours if needed for severe pain--> [facility] *Follow up with your primary care provider in 2-3 days or call [phone] *Return to ER if you should have increased pain swelling confusion or any new, worsening or concerning symptoms CONTROLLED SUBSTANCE DISCHARGE (Narcotoic/benzodiazepine/Flexeril/Phenergan) 1. You have been prescribed narcotic medications, it does have acetaminophen/Tylenol/paracetamol in it, DO NOT TAKE MORE THAN 4,00mg in 24 hours of Tylenol. TRAMADOL DOES NOT CONTAIN TYLENOL 2. Please understand that we cannot provide further refills of narcotics, benzodiazepines or controlled substances through the ED and her pain management will need to be through your provider. 3. While on these medications you cannot drive or operate heavy machinery. 4. You cannot sign legal documents or perform any duties such as this. 5. As long as you're taking opiate pain medications he should also be taking a stool softener such as Colace, Dulcolax, MiraLAX or prune juice, to help avoid constipation. Prescriptions: New hydrocodone-acetaminophen 5-325 mg tablet 1 tab PO Q6H PRN (Reason: pain) Qty: 10 0RF No Action atorvastatin 40 mg tablet 40 mg PO BEDTIME Patient Comments: TAKE 1 TABLET BY MOUTH NIGHTLY clopidogrel 75 mg tablet 75 mg PO DAILY Patient Comments: TAKE 1 TABLET BY MOUTH ONCE DAILY carvedilol 3.125 mg tablet 3.125 mg PO BID Patient Comments: TAKE 1 TABLET BY MOUTH TWICE DAILY WITH MEALS Rx Instructions: with meals levothyroxine [Euthyrox] 25 mcg tablet 25 mcg PO DAILY Patient Comments: TAKE 1 TABLET BY MOUTH ONCE DAILY prazosin 2 mg capsule 2 mg PO BEDTIME Patient Comments: TAKE 1 CAPSULE BY MOUTH NIGHTLY pregabalin 25 mg capsule 25 mg PO TID Patient Comments: TAKE 1 CAPSULE BY MOUTH THREE TIMES DAILY Referrals: Miscellaneous,Doctor, MD [Primary Care Provider] - Stand Alone Forms: Patient Portal/API, Work Release Note
[2023-01-29 13:40] LABS: RBC Urine 0-1/HPF (0-5/HPF)
[2023-01-29 13:41] LABS: Bacteria Urine Moderate (10-30); Culture Indicated Urine Specimen Cultured; Squamous Epithelial Cell Urine 1-5 /HPF (0-5/HPF); WBC Urine 5-10/HPF (0-5/HPF)
== END 2023-01-29 13:39 | disposition home or self-care (01) ==
PROVIDERS: Emergency Provider Emergency Medicine
DX: S09.90XA Unspecified injury of head, initial encounter (principal); S80.01XA Contusion of right knee, initial encounter; W18.30XA Fall on same level, unspecified, initial encounter
CPT/HCPCS: 36415; 70450; 71045; 72125; 73562; 80053; 81003; 81015; 82550; 83690; 83735; 84484; 85025; 85610; 85730; 87077; 87086; 87186; 93005; 99284

== ENCOUNTER 2023-05-15 12:31 | Emergency (ER) | payer SELFPAY ==
[2023-05-15] VITALS (12 sets, daily range): BP systolic 160–211; BP diastolic 81–101; PULSE 61–82; RESP 16–26; TEMP 36.9; O2SAT 95–99; BMI 29.5
--- NOTE | 2023-05-15 12:35 | DI.RAD.S_ITS ---
PROCEDURE: XR CHEST 1V INDICATIONS: Chest pain TECHNIQUE: One view of the chest was acquired. COMPARISON: [facility], CR, XR CHEST 1V, 01/29/2023, 11:54. FINDINGS: Surgical changes and devices: None. Lungs and pleura: Lungs are clear. No pleural effusions or pneumothorax. Mediastinum: Mediastinal contours appear normal. Heart size is normal. Bones and chest wall: No suspicious bony lesions. Overlying soft tissues appear unremarkable. IMPRESSION: No acute cardiopulmonary abnormality is seen. Dictated by: Karson Brown M.D. on 05/15/2023 at 11:59 Approved by: Karson Brown M.D. on 05/15/2023 at 12:01
[2023-05-15 12:42] LABS: Add Manual Diff / Slide Review NO; Basophils Absolute Auto 100 /uL (0-100); Basophils Percent Auto 1.4 % (0-2); Eosinophils Absolute Auto 400 /uL (0-450); Eosinophils Percent Auto 4.8 % (2-4); Hematocrit 42.4 % (36-46); Hemoglobin 14.4 g/dL (12.0-16.0); Lymphocytes Absolute Auto 1900 /uL (1100-4500); Lymphocytes Percent Auto 23.8 % (25-40); Mean Corpuscular Hemoglobin 28.7 PG (26-34); Mean Corpuscular Volume 84.4 fL (80-100); Monocytes Absolute Auto 700 /uL (0-900); Monocytes Percent Auto 8.1 % (3-14); Neutrophils Absolute Auto 5000 /uL (1500-7000); Neutrophils Percent Auto 61.9 % (50-75); Platelet Count 268 X10^3/uL (150-400); Red Blood Cell Count 5.03 X10^6/uL (4.0-5.2); Red Cell Distribution Width 14.5 % (11.6-14.8)
[2023-05-15 12:52] LABS: Alanine Aminotransferase 16 IU/L (<35); Albumin 4.4 g/dL (3.5-5.0); Albumin Globulin Ratio 1.3 (1.0-2.8); Alkaline Phosphatase 78 U/L (38-126); Aspartate Aminotransferase 26 IU/L (14-36); BUN Creatinine Ratio 18.8 (6-22); Bilirubin Total 0.5 mg/dL (0.2-1.3); Blood Urea Nitrogen 16 mg/dL (7-17); Calcium 9.7 mg/dL (8.4-10.2); Carbon Dioxide 28 mmol/L (22-32); Chloride 105 mmol/L (98-107); Creatine Kinase 69 U/L (30-135); Estimated Glomerular Filt Rate > 60 mL/min (>60); Globulin 3.4 g/dL (1.7-4.1); Glucose 111 mg/dL (80-110); HEMOLYSIS < 15 (0-50); Lipase 68 U/L (23-300); Sodium 140 mmol/L (137-145); Total Protein 7.8 g/dL (6.3-8.2)
--- NOTE | 2023-05-15 13:03 | ED_ITS ---
HPI - Chest Pain General Chief Complaint: Chest Pain Stated Complaint: Chest Pain Time Seen by Provider: 05/15/23 12:35 Source: patient and EMS Mode of arrival: EMS Limitations: no limitations History of Present Illness HPI narrative: Patient is a 62-year-old female. History of coronary artery disease. Approximately 2 hours prior to arrival here in the emergency department she was sitting in her car eating lunch when she had a fairly sudden onset of right- sided chest discomfort. States it started on the top of her right breast that radiated down to the center of her chest. It is worse with palpation. It is different from her prior issues when she had the non ST-elevation [facility]. no cough. No sore throat. No fevers. No abdominal pain. No nausea or vomiting. She did receive an aspirin and 2 nitroglycerin prior to arrival by EMS. No change in her symptoms. She does have a history of high blood pressure. Has taken all of her medicines as directed. Related Data Home Medications Medication Instructions Recorded Confirmed atorvastatin 40 mg tablet 40 mg PO BEDTIME 02/19/21 02/19/21 carvedilol 3.125 mg tablet 3.125 mg PO BID 02/19/21 02/19/21 clopidogrel 75 mg tablet 75 mg PO DAILY 02/19/21 02/19/21 levothyroxine 25 mcg tablet 25 mcg PO DAILY 02/19/21 02/19/21 (Euthyrox) prazosin 2 mg capsule 2 mg PO BEDTIME 02/19/21 02/19/21 pregabalin 25 mg capsule 25 mg PO TID 02/19/21 02/19/21 Previous Rx's Medication Instructions Recorded hydrocodone 5 mg-acetaminophen 325 1 tab PO Q6H PRN pain #10 tabs 01/29/23 mg tablet amoxicillin 875 mg-potassium 1 tab PO Q12H #10 tabs 02/10/23 clavulanate 125 mg tablet Allergies Allergy/AdvReac Type Severity Reaction Status Date / Time aspirin AdvReac Abdominal Verified 02/19/21 15:49 Pain codeine AdvReac ITCHING Verified 02/19/21 15:49 Review of Systems Constitutional Constitutional: Reports system reviewed and no additional complaints, except as documented Cardiovascular Cardiovascular: Reports system reviewed and no additional complaints, except as documented Respiratory Respiratory: Reports system reviewed and no additional complaints, except as documented Gastrointestinal Gastrointestinal: Reports system reviewed and no additional complaints, except as documented Integumentary/Breasts Skin/Breast: Reports system reviewed and no additional complaints, except as documented Hematologic/Lymphatic On Anticoagulants: No Patient History Social History Smoking Status: Current every day smoker Smoking Status: Current every day smoker alcohol intake frequency: holidays/special occasions only Substance Use Type: marijuana Exam Initial Vital Signs Initial Vital Signs: Vital Signs Temperature 98.4 F 05/15/23 12:36 Pulse Rate 82 05/15/23 12:36 Respiratory Rate 20 05/15/23 12:36 Blood Pressure 211/101 H 05/15/23 12:36 Pulse Oximetry 97 05/15/23 12:36 Oxygen Delivery Method Room Air 05/15/23 12:36 HENMT Head: normal to inspection and normocephalic Resp Effort & Inspection: normal respiratory effort Auscultation: clear to auscultation bilaterally Cardio Rate: regular rate Rhythm: regular rhythm GI Inspection: normal to inspection Skin General: no rashes or lesions noted Neuro General: patient alert, patient awake and moves all extremities Extrem General: capillary refill normal Course Orders Ordered: ED Orders 05/15/23 12:34 Complete Blood Count AUTO DIFF Stat Comprehensive Metabolic Panel Stat Lipase Stat NT-proBNP (BNP-Adult 18+) Stat Troponin & CK Cardiac Panel Stat 05/15/23 12:35 XR chest 1V Stat 05/15/23 12:40 EKG-12 Lead Stat 05/15/23 14:33 Troponin & CK Cardiac Panel Stat Vital Signs Vital signs: Vital Signs - 8 hr 05/15/23 12:36 05/15/23 12:37 05/15/23 12:40 Temperature 98.4 F Pulse Rate 82 73 68 Respiratory Rate 20 20 24 Blood Pressure 211/101 H Pulse Oximetry 97 96 96 Oxygen Delivery Method Room Air 05/15/23 12:40 05/15/23 12:50 05/15/23 12:50 Temperature Pulse Rate 67 Respiratory Rate 19 Blood Pressure 160/83 H 193/92 H Pulse Oximetry 99 Oxygen Delivery Method 05/15/23 13:00 05/15/23 13:20 05/15/23 13:20 Temperature Pulse Rate 68 62 Respiratory Rate 19 19 Blood Pressure 173/86 H Pulse Oximetry 98 98 Oxygen Delivery Method Room Air Room Air 05/15/23 13:30 05/15/23 13:40 05/15/23 13:40 Temperature Pulse Rate 64 63 Respiratory Rate 17 20 Blood Pressure 177/82 H Pulse Oximetry 98 99 Oxygen Delivery Method Room Air 05/15/23 14:00 05/15/23 14:00 05/15/23 14:30 Temperature Pulse Rate 68 70 Respiratory Rate 16 19 Blood Pressure 188/92 H Pulse Oximetry 99 95 Oxygen Delivery Method Room Air 05/15/23 14:31 05/15/23 14:31 05/15/23 15:00 Temperature Pulse Rate 68 Respiratory Rate 26 H Blood Pressure 170/81 H 185/86 H Pulse Oximetry 98 Oxygen Delivery Method 05/15/23 15:00 Temperature Pulse Rate 61 Respiratory Rate 18 Blood Pressure Pulse Oximetry 96 Oxygen Delivery Method Room Air MDM - Chest Pain Lab Data Attestation: I reviewed the patient's lab results. 05/15/23 12:34 05/15/23 12:34 Labs: Lab Results 05/15/23 05/15/23 Range/Units 12:34 14:33 WBC 8.0 (4.5-11.0) X10^3/uL RBC 5.03 (4.0-5.2) X10^6/uL Hgb 14.4 (12.0-16.0) g/dL Hct 42.4 (36-46) % MCV 84.4 (80-100) fL MCH 28.7 (26-34) PG MCHC 34.0 (30-36) % RDW 14.5 (11.6-14.8) % Plt Count 268 (150-400) X10^3/uL Neut % (Auto) 61.9 (50-75) % Lymph % (Auto) 23.8 L (25-40) % [place] % (Auto) 8.1 (3-14) % Eos % (Auto) 4.8 H (2-4) % Baso % (Auto) 1.4 (0-2) % Neut # (Auto) 5000 (8396-2877) /uL Lymph # (Auto) 1900 (3698-0782) /uL [place] # (Auto) 700 (0-900) /uL Eos # (Auto) 400 (0-450) /uL Baso # (Auto) 100 (0-100) /uL Sodium 140 (137-145) mmol/L Potassium 4.0 (3.4-5.1) mmol/L Chloride 105 (98-107) mmol/L Carbon Dioxide 28 (22-32) mmol/L BUN 16 (7-17) mg/dL Creatinine 0.85 (0.52-1.04) mg/dL Estimated GFR > 60 (>60) mL/min BUN/Creatinine Ratio 18.8 (6-22) Glucose 111 H (80-110) mg/dL Calcium 9.7 (8.4-10.2) mg/dL Total Bilirubin 0.5 (0.2-1.3) mg/dL AST 26 (14-36) IU/L ALT 16 (<35) IU/L Alkaline Phosphatase 78 (38-126) U/L Total Creatine Kinase 69 62 (30-135) U/L Troponin I < 0.012 < 0.012 (0.01-0.034) ng/mL NT-Pro-B Natriuret Pep 208 H (<125) pg/mL Total Protein 7.8 (6.3-8.2) g/dL Albumin 4.4 (3.5-5.0) g/dL Globulin 3.4 (1.7-4.1) g/dL Albumin/Globulin Ratio 1.3 (1.0-2.8) Lipase 68 (23-300) U/L Imaging Data Chest x-ray: Radiologist's Impression: PROCEDURE: XR CHEST 1V INDICATIONS: Chest pain TECHNIQUE: One view of the chest was acquired. COMPARISON: [facility], , XR CHEST 1V, 01/29/2023, 11:54. FINDINGS: Surgical changes and devices: None. Lungs and pleura: Lungs are clear. No pleural effusions or pneumothorax. Mediastinum: Mediastinal contours appear normal. Heart size is normal. Bones and chest wall: No suspicious bony lesions. Overlying soft tissues appear unremarkable. IMPRESSION: No acute cardiopulmonary abnormality is seen. ECG Data Attestation: I personally reviewed and interpreted this ECG as follows: Interpretation: Sinus rhythm Ventricular rate is 67 Normal axis Normal QRS Normal QTC No ST T wave changes MDM Narrative Medical decision making narrative: Patient has known coronary artery disease and hypertension. She has had stents placed in the past. Her discomfort today is on the right side of her chest. She is had 2- troponins. No ST changes on her EKG and chest x-ray is unremarkable. Patient obviously is not had 0 risk for coronary artery disease. Had a discussion with her regarding her symptoms today. I do feel that she needs a stress test. Her last stress test was approximately 1 year ago. Plan will be is to discharge patient home and have her contact her primary doctor for follow-up to discuss further risk stratification. She was given return precautions. She expressed understanding and agreement. Discharge Plan Departure Patient Disposition: Home Clinical Impression: Atypical chest pain Instructions: DI for Atypical Chest Pain Activity Restrictions/Additional Instructions: Recommend that you continue to take all of your medications as directed. Contact your primary doctor to discuss follow-up and the indications for further stress test. Return to the emergency department for new or worsening symptoms. Prescriptions: No Action atorvastatin 40 mg tablet 40 mg PO BEDTIME Patient Comments: TAKE 1 TABLET BY MOUTH NIGHTLY clopidogrel 75 mg tablet 75 mg PO DAILY Patient Comments: TAKE 1 TABLET BY MOUTH ONCE DAILY carvedilol 3.125 mg tablet 3.125 mg PO BID Patient Comments: TAKE 1 TABLET BY MOUTH TWICE DAILY WITH MEALS Rx Instructions: with meals levothyroxine [Euthyrox] 25 mcg tablet 25 mcg PO DAILY Patient Comments: TAKE 1 TABLET BY MOUTH ONCE DAILY prazosin 2 mg capsule 2 mg PO BEDTIME Patient Comments: TAKE 1 CAPSULE BY MOUTH NIGHTLY pregabalin 25 mg capsule 25 mg PO TID Patient Comments: TAKE 1 CAPSULE BY MOUTH THREE TIMES DAILY hydrocodone-acetaminophen 5-325 mg tablet 1 tab PO Q6H PRN (Reason: pain) Qty: 10 0RF amoxicillin-pot clavulanate 875-125 mg tablet 1 tab PO Q12H Qty: 10 0RF Referrals: Miscellaneous,Doctor, MD [Primary Care Provider] - Stand Alone Forms: Patient Portal/API
[2023-05-15 13:04] LABS: NT-proBNP (BNP-Adult 18+) 208 pg/mL (<125); Troponin I < 0.012 ng/mL (0.01-0.034)
[2023-05-15 14:50] LABS: Creatine Kinase 62 U/L (30-135)
[2023-05-15 15:03] LABS: Troponin I < 0.012 ng/mL (0.01-0.034)
== END 2023-05-15 15:22 | disposition home or self-care (01) ==
PROVIDERS: Emergency Provider Emergency Medicine
DX: R07.89 Other chest pain (principal)
CPT/HCPCS: 36415; 71045; 80053; 82550; 83690; 83880; 84484; 85025; 93005; 99283; 99284

== ENCOUNTER 2024-04-14 01:35 | Emergency (ER) | payer BC, SELFPAY ==
--- NOTE | 2024-04-14 01:41 | ED_ITS ---
HPI - General Adult General Chief complaint: Back Pain/Injury Stated complaint: back pain Time Seen by Provider: 04/14/24 01:41 History of Present Illness HPI narrative: 63-year-old female complains of left lower back pain for the last 1 week, worse tonight, no specific injury or lifting or new activities recalled. No pain to the buttock or the leg. No incontinence of urine and stool. No perineal region saddle area numbness or tingling. She has been able to walk. She has been ta ian Tylenol for her discomfort. She states that she can not take ibuprofen because she has on a blood thinner medication. No fevers, no dysuria or frequency of urination, no flank area discomfort. No skin changes or rashes. Related Data Previous Rx's Medication Instructions Recorded albuterol sulfate 90 mcg/actuation 2 puff inhalation Q6H PRN 08/11/23 aerosol inhaler shortness of breath or wheezing #8.5 grams budesonide-formoterol HFA 80 2 puff inhalation BID #10.2 grams 08/11/23 mcg-4.5 mcg/actuation aerosol inhaler amlodipine 10 mg tablet 10 mg PO DAILY #30 tabs 09/15/23 atorvastatin 40 mg tablet 40 mg PO BEDTIME #30 tabs 09/15/23 bupropion HCl 150 mg tablet,12 hr 150 mg PO DAILY #30 ea 09/15/23 sustained-release clopidogrel 75 mg tablet 75 mg PO DAILY #30 tabs 09/15/23 levothyroxine 25 mcg tablet 25 mcg PO DAILY #30 tabs 09/15/23 (Euthyrox) prazosin 2 mg capsule 2 mg PO BEDTIME #30 caps 09/15/23 carvedilol 6.25 mg tablet 6.25 mg PO BID #120 tabs 10/13/23 duloxetine 60 mg capsule,delayed 60 mg PO BID #180 caps 10/13/23 release methocarbamol 500 mg tablet 500 mg PO TID 7 days #21 tabs 04/14/24 Allergies Allergy/AdvReac Type Severity Reaction Status Date / Time aspirin AdvReac Abdominal Verified 10/13/23 15:37 Pain codeine AdvReac ITCHING Verified 10/13/23 15:37 lisinopril Allergy Severe Anaphylaxis Uncoded 10/13/23 15:37 Review of Systems Review of Systems Narrative: see HPI Patient History Medical History (Updated 04/14/24 @ 02:52 by Kalin Chicas MD) Vision disorder Allergies PTSD (post-traumatic stress disorder) Anxiety Headache Shoulder pain Foot pain Chronic back pain Carpal tunnel syndrome (~2003) Ankle pain Rheumatic fever Mumps Measles Chicken pox Ovarian cyst (~2013) Infertility History of heart attack (~2019) CAD (coronary artery disease) Presence of stent in coronary artery in patient with coronary artery disease Depression COPD (chronic obstructive pulmonary disease) (~2013) Nightmares Hypothyroidism (~2013) Hypertension (~2013) Family History (Updated 08/27/23 @ 21:07 by Louisa Reyna) Father Cancer Mother History of heart attack History of heart disease Social History Smoking Status: Current every day smoker Smoking Status: Current every day smoker alcohol intake frequency: holidays/special occasions only Substance Use Type: marijuana Exam Narrative Exam Narrative: GENERAL: Well-developed patient, in mild distress. HEAD: Atraumatic. Normocephalic. EYES: Pupils equal round and reactive. Extraocular motions intact. No scleral icterus. No injection or drainage. ENT: Nose without bleeding, purulent drainage. Throat without erythema, tonsillar hypertrophy or exudate. Airway patent. NECK: Trachea midline. Non tender CARDIOVASCULAR: Regular rate and rhythm without murmurs, gallops, or rubs. RESPIRATORY: Clear to auscultation. Breath sounds equal bilaterally. No wheezes, rales, or rhonchi. GASTROINTESTINAL: Abdomen soft, non-tender, nondistended. EXTREMITIES: No edema or joint tenderness. BACK: Nontender without deformity or crepitance. No flank tenderness. NEURO: AOx3. Motor functions grossly nonfocal SKIN: No rash or erythema of visible areas Initial Vital Signs Initial Vital Signs: Vital Signs Temperature 98.0 F 04/14/24 01:49 Pulse Rate 92 H 04/14/24 01:49 Respiratory Rate 18 04/14/24 01:49 Blood Pressure 206/91 H 04/14/24 01:49 Pulse Oximetry 99 04/14/24 01:49 Oxygen Delivery Method Room Air 04/14/24 01:49 Course Orders Ordered: Discontinued Medications Amlodipine Besylate (Amlodipine 5 Mg Tablet) 5 mg PO NOW ONE Stop: 04/14/24 03:06 Last Admin: 04/14/24 03:24 Dose: Not Given Documented By: JUANA Hydromorphone HCl (Hydromorphone 1 Mg Inj) 1 mg IM NOW ONE Stop: 04/14/24 01:48 Last Admin: 04/14/24 02:12 Dose: 1 mg Documented By: JUANA Methocarbamol (Methocarbamol 500 Mg Tablet) 500 mg PO NOW ONE Stop: 04/14/24 01:52 Last Admin: 04/14/24 02:12 Dose: 500 mg Documented By: JUANA Ondansetron HCl (Ondansetron 4 Mg Odt) 4 mg SL NOW ONE Stop: 04/14/24 01:49 Last Admin: 04/14/24 02:12 Dose: 4 mg Documented By: JUANA Vital Signs Vital signs: Vital Signs - 8 hr 04/14/24 01:49 04/14/24 03:04 Temperature 98.0 F Pulse Rate 92 H 67 Respiratory Rate 18 Blood Pressure 206/91 H 128/60 Pulse Oximetry 99 97 Oxygen Delivery Method Room Air Medical Decision Making [facility] Narrative Medical decision making narrative: 63-year-old female with left lower lumbar discomfort, one-week duration, not responsive to Tylenol, reportedly can not take ibuprofen. No bowel bladder symptoms, ambulatory. Tenderness on examination, no skin changes. IM Dilaudid injection. Oral Robaxin dose. Patient looks more comfortable, now lying on gurney rather than preferring to sit with legs over the side. Blood pressure initially elevated in context of pain, better after pain control. Patient ambulatory. Stable, improved, discharged home with family. Prescription for Robaxin to use at home if needed, eRx sent to her pharmacy. Hold on any advanced spinal imaging at this time. Return precautions discussed Discharge Plan Departure Patient Disposition: Home Clinical Impression: Lumbar back pain Instructions: DI for Low Back Pain Activity Restrictions/Additional Instructions: Left lower back pain, with some localized tenderness. Not responsive to Tylenol taken at home, apparently not able to take ibuprofen like medications. Injectable Dilaudid given, oral Robaxin muscle relaxant given. Pain significantly improved, ambulatory in the department. Initial blood pressure elevated in context of pain, blood pressure improved after pain control. Prescription for further methocarbamol/Flexeril muscle relaxant sent to your pharmacy. Consider recheck with your regular doctor Tuesday if symptoms persist. Return earlier to this/nearest emergency department for any change worsening symptoms or any concerns prior Prescriptions: New methocarbamol 500 mg tablet 500 mg PO TID 7 Days Qty: 21 0RF No Action albuterol sulfate 90 mcg/actuation HFA aerosol inhaler 2 puff inhalation Q6H PRN (Reason: shortness of breath or wheezing) Qty: 8.5 0RF budesonide-formoterol 80-4.5 mcg/actuation HFA aerosol inhaler 2 puff inhalation BID Qty: 10.2 0RF amlodipine 10 mg tablet 10 mg PO DAILY Qty: 30 6RF atorvastatin 40 mg tablet 40 mg PO BEDTIME Qty: 30 4RF clopidogrel 75 mg tablet 75 mg PO DAILY Qty: 30 6RF levothyroxine [Euthyrox] 25 mcg tablet 25 mcg PO DAILY Qty: 30 5RF prazosin 2 mg capsule 2 mg PO BEDTIME Qty: 30 6RF bupropion HCl 150 mg tablet sustained-release 12 hr 150 mg PO DAILY Qty: 30 6RF carvedilol 6.25 mg tablet 6.25 mg PO BID Qty: 120 2RF Rx Instructions: must administer with a meal/food duloxetine 60 mg capsule,delayed release(DR/EC) 60 mg PO BID Qty: 180 3RF Referrals: Maria Isabel Benedict MD [Primary Care Provider] - Stand Alone Forms: Patient Portal/API/Survey
[2024-04-14 01:49] VITALS: BP 206/91; PULSE 92; RESP 18; TEMP 36.7; O2SAT 99; BMI 29.4
[2024-04-14] MEDS: ONDANSETRON 4 MG ODT SL (02:12)
[2024-04-14] MEDS: methocarbamoL 500 MG TABLET PO (02:12)
[2024-04-14] MEDS: HYDROMORPHONE 1 MG INJ IM (02:12)
[2024-04-14 03:04] VITALS: BP 128/60; PULSE 67; O2SAT 97
== END 2024-04-14 03:30 | disposition home or self-care (01) ==
PROVIDERS: Emergency Provider Emergency Medicine; PCP Family Medicine
DX: M54.50 Low back pain, unspecified (principal)
CPT/HCPCS: 96372; 99283; J1171

== ENCOUNTER → 2024-08-08 10:42 | Outpatient (CLI) | payer SELFPAY ==
[2024-08-08 11:57] LABS: Add Manual Diff / Slide Review NO; Basophils Absolute Auto 100 /uL (0-100); Basophils Percent Auto 1.1 % (0-2); Eosinophils Absolute Auto 300 /uL (0-450); Eosinophils Percent Auto 3.5 % (2-4); Hemoglobin 14.4 g/dL (12.0-16.0); Lymphocytes Absolute Auto 1400 /uL (1100-4500); Lymphocytes Percent Auto 14.3 % (25-40); Mean Corpuscular HGB Conc 33.5 % (30-36); Mean Corpuscular Hemoglobin 28.6 PG (26-34); Mean Corpuscular Volume 85.3 fL (80-100); Monocytes Absolute Auto 800 /uL (0-900); Monocytes Percent Auto 8.5 % (3-14); Neutrophils Absolute Auto 6900 /uL (1500-7000); Neutrophils Percent Auto 72.6 % (50-75); Platelet Count 323 X10^3/uL (150-400); Red Blood Cell Count 5.04 X10^6/uL (4.0-5.2); Red Cell Distribution Width 14.8 % (11.6-14.8); White Blood Cell Count 9.5 X10^3/uL (4.5-11.0)
[2024-08-08 12:11] LABS: Hemoglobin A1C% w Est Avg Glu 5.2 % (4.0-6.0)
[2024-08-08 12:24] LABS: Alanine Aminotransferase 16 IU/L (<35); Albumin 4.4 g/dL (3.5-5.0); Albumin Globulin Ratio 1.5 (1.0-2.8); Alkaline Phosphatase 85 U/L (38-126); Aspartate Aminotransferase 24 IU/L (14-36); BUN Creatinine Ratio 15.3 (6-22); Bilirubin Total 0.7 mg/dL (0.2-1.3); Blood Urea Nitrogen 13 mg/dL (7-17); Calcium 9.6 mg/dL (8.4-10.2); Carbon Dioxide 23 mmol/L (22-32); Chloride 104 mmol/L (98-107); Estimated Glomerular Filt Rate > 60 mL/min (>60); Globulin 2.9 g/dL (1.7-4.1); Glucose 95 mg/dL (80-110); HEMOLYSIS < 15 (0-50); Lipase 59 U/L (23-300); Potassium 4.1 mmol/L (3.4-5.1); Sodium 138 mmol/L (137-145); Total Protein 7.3 g/dL (6.3-8.2)
[2024-08-08 12:51] LABS: TSH w/ Reflex to FT4 8.62 uIU/mL (0.47-4.68)
[2024-08-08 14:14] LABS: Free T4, Direct Thyroxine 0.83 ng/dL (0.78-2.19)
[2024-08-10 09:09] LABS: Interpretation Negative (Negative)
== END ==
LOC: LAB 10:44
PROVIDERS: PCP Family Medicine; Referring Provider Family Medicine; Visit Provider Family Medicine
DX: R11.0 Nausea (principal); R53.83 Other fatigue
CPT/HCPCS: 36415; 80053; 83013; 83036; 83690; 84439; 84443; 85025